=== PATIENT | female | born 1960 | race Caucasian/White ===

== ENCOUNTER 2020-10-20 14:38 | Inpatient (IN) | payer OTHER ==
[~2020-10-20] VITALS: Ht 152.4 cm; Wt 83.6 kg
[~2020-10-20 14:38] MED LIST: EAR DROPS15 ML EARRT; ELIQUIS 5 MG TAB5 MG PO; FLECAINIDE ACE100 MG PO; KEFLEX CAP 500500 MG PO; LOPRESSOR50 MG PO; METOPROLOL SUCC50 MG PO; XARELTO15 MG PO
[2020-10-20 16:10] LABS: HEMOGLOBIN 14.2 gm/dl (12.3-15.3); RED BLOOD COUNT 4.98 M/UL (4.00-5.10); WHITE BLOOD COUNT 3.7 K/UL (4.5-11.0)
[2020-10-20 16:49] LABS: BUN/CREATININE RATIO 28 (0-10)
[2020-10-20] MEDS ORDERED: AMLODIPINE BESYL5 MG PO (16:57)
[2020-10-20] MEDS ORDERED: LIPITOR TAB 2020 MG PO (16:58)
[2020-10-20] MEDS ORDERED: VITAMIN C 500500 MG PO (16:59)
[2020-10-20] MEDS ORDERED: ZINC SULFATE220 M1 PO (17:00)
[2020-10-20] MEDS ORDERED: FISH OIL 1,0001 EAC3 PO (17:00)
[2020-10-20] MEDS ORDERED: B COMPLEX1 EACH PO (17:01)
[2020-10-20] MEDS ORDERED: VITAMIN D325 MCG PO (17:01)
[2020-10-20] MEDS ORDERED: GARLIC1 EAC1 PO (17:02)
[2020-10-20] MEDS ORDERED: VITAMIN E400 UNI4 PO (17:02)
[2020-10-20] MEDS ORDERED: METOPROLOL TART50 MG PO (17:05)
[2020-10-20] MEDS ORDERED: LORATADINE10 MG PO (17:08)
[2020-10-20] MEDS ORDERED: LOSARTAN POTAS100 MG PO (20:30)
[2020-10-20] MEDS ORDERED: ASPIRIN 325MG325 MG PO (20:31)
[2020-10-20] MEDS ORDERED: GLUCOPHAGE1000 MG PO (20:31)
[2020-10-20] MEDS ORDERED: SYNTHROID112 MCG PO (20:36)
[2020-10-20] MEDS ORDERED: DIABETA 5 MG TAB5 MG PO (20:37)
[2020-10-20] MEDS ORDERED: MAGOX 400400 MG PO (20:38)
[2020-10-21 05:13] LABS: HEMOGLOBIN 15.7 gm/dl (12.3-15.3); RED BLOOD COUNT 5.38 M/UL (4.00-5.10)
[2020-10-21 05:16] LABS: WHITE BLOOD COUNT 5.8 K/UL (4.5-11.0)
[2020-10-21 05:39] LABS: BUN/CREATININE RATIO 18 (0-10)
[2020-10-22 02:52] LABS: HEMOGLOBIN 14.9 gm/dl (12.3-15.3); RED BLOOD COUNT 5.09 M/UL (4.00-5.10)
[2020-10-22 02:57] LABS: WHITE BLOOD COUNT 3.8 K/UL (4.5-11.0)
[2020-10-22 03:26] LABS: BUN/CREATININE RATIO 19 (0-10)
[2020-10-23 02:13] LABS: HEMOGLOBIN 14.6 gm/dl (12.3-15.3); RED BLOOD COUNT 5.05 M/UL (4.00-5.10); WHITE BLOOD COUNT 3.8 K/UL (4.5-11.0)
[2020-10-23 02:39] LABS: BUN/CREATININE RATIO 19 (0-10)
[2020-10-23] MEDS ORDERED: CARDIZEM120 MG PO (15:57)
[2020-10-23] MEDS ORDERED: ELIQUIS 5 MG TAB5 MG PO (15:57)
[2020-10-23] MEDS ORDERED: LOPRESSOR100 MG PO (15:57)
== END 2020-10-23 18:00 | disposition home or self-care (01) | DRG 308 ==
LOC: ER1 14:38 → CDU 16:25 → PROG CARE 16:25 → CDU 16:25 → PROG CARE 10-21 21:39
PROVIDERS: Preventive Medicine Occupational Medicine; ADMIT Internal Medicine
PROC: 8E0ZXY6 Isolation (ICD-10-PCS; principal; 2020-10-22)
DX: I48.0 Paroxysmal atrial fibrillation (principal); U07.1 COVID-19; I48.19 Other persistent atrial fibrillation; E03.9 Hypothyroidism, unspecified; E78.5 Hyperlipidemia, unspecified; I16.0 Hypertensive urgency; Z79.899 Other long term (current) drug therapy; Z79.82 Long term (current) use of aspirin; Z86.73 Personal history of transient ischemic attack (TIA), and cerebral infarction without residual deficits; E11.9 Type 2 diabetes mellitus without complications; E87.6 Hypokalemia; Z28.21 Immunization not carried out because of patient refusal; Z82.49 Family history of ischemic heart disease and other diseases of the circulatory system; Z79.84 Long term (current) use of oral hypoglycemic drugs; Z98.61 Coronary angioplasty status
CPT/HCPCS: ECHO; 0240U; 36415; 71045; 71250; 80053; 81001; 82550; 82553; 82728; 82962; 83615; 83690; 83735; 83874; 84100; 84132; 84439; 84443; 84484; 85025; 85379; 85610; 85652; 86140; 93005; 93306; 96372; 96374; 96375; 99285; G0378; J0360; J7030

== ENCOUNTER → 2020-11-28 | Outpatient (CLI) | payer OTHER ==
[~2020-11-28] MED LIST changes: +AMLODIPINE BESYL5 MG PO; +ASPIRIN 325MG325 MG PO; +B COMPLEX1 EACH PO; +CARDIZEM120 MG PO; +DIABETA 5 MG TAB5 MG PO; +FISH OIL 1,0001 EAC3 PO; +GARLIC1 EAC1 PO; +GLUCOPHAGE1000 MG PO; +LIPITOR TAB 2020 MG PO; +LOPRESSOR100 MG PO; +LORATADINE10 MG PO; +LOSARTAN POTAS100 MG PO; +MAGOX 400400 MG PO; +METOPROLOL TART50 MG PO; +SYNTHROID112 MCG PO; +VITAMIN C 500500 MG PO; +VITAMIN D325 MCG PO; +VITAMIN E400 UNI4 PO; +ZINC SULFATE220 M1 PO
[2020-11-28 08:13] LABS: HEMOGLOBIN 13.6 gm/dl (12.3-15.3); RED BLOOD COUNT 4.7 M/UL (4.00-5.10); WHITE BLOOD COUNT 5.3 K/UL (4.5-11.0)
[2020-11-28 08:36] LABS: BUN/CREATININE RATIO 18 (0-10)
== END ==
LOC: CATH 07:22
PROVIDERS: Internal Medicine Cardiovascular Disease
DX: I48.19 Other persistent atrial fibrillation (principal); I10 Essential (primary) hypertension; E11.9 Type 2 diabetes mellitus without complications; E03.9 Hypothyroidism, unspecified; E78.5 Hyperlipidemia, unspecified; Z79.01 Long term (current) use of anticoagulants; Z79.84 Long term (current) use of oral hypoglycemic drugs; Z86.16 Personal history of COVID-19; Z79.899 Other long term (current) drug therapy
CPT/HCPCS: 36415; 80048; 85027; 92960; 93005; J1200; J1742; J2250; J2310; J3010; J7040

== ENCOUNTER → 2021-11-15 | Outpatient (CLI) | payer OTHER ==
[~2021-11-15] MED LIST changes: +ELIQUIS5 MG PO; +LASIX20 MG PO; +MULTAQ 400 MG400 MG PO
[2021-11-15 14:40] LABS: HEMOGLOBIN 12.3 gm/dl (12.3-15.3); RED BLOOD COUNT 4.25 M/UL (4.00-5.10); WHITE BLOOD COUNT 5.9 K/UL (4.5-11.0)
[2021-11-15 14:59] LABS: BUN/CREATININE RATIO 14 (0-10)
== END | disposition home or self-care (01) ==
LOC: CATH 13:30
PROVIDERS: Internal Medicine Cardiovascular Disease
DX: I48.19 Other persistent atrial fibrillation (principal); I10 Essential (primary) hypertension; E03.9 Hypothyroidism, unspecified; E78.5 Hyperlipidemia, unspecified; E11.9 Type 2 diabetes mellitus without complications; Z86.73 Personal history of transient ischemic attack (TIA), and cerebral infarction without residual deficits; Z79.01 Long term (current) use of anticoagulants; Z79.84 Long term (current) use of oral hypoglycemic drugs; Z79.899 Other long term (current) drug therapy
CPT/HCPCS: 36415; 80048; 82962; 85027; 92960; 93005; J1200; J1742; J2250; J2310; J3010; J7040

== ENCOUNTER → 2021-12-31 | Outpatient (CLI) | payer OTHER | LOC: HEART 5 09:01 | DX: R06.02 Shortness of breath (principal); I48.19 Other persistent atrial fibrillation; R00.2 Palpitations; Z79.899 Other long term (current) drug therapy | CPT/HCPCS: 94060; 94729 ==